=== PATIENT | female | born 1950 | race Caucasian/White ===

== ENCOUNTER 2021-10-01 01:31 | Emergency (ER) | payer OTHER ==
[2021-10-01 02:05] LABS: HEMOGLOBIN 14.1 gm/dl (12.3-15.3); RED BLOOD COUNT 4.68 M/UL (4.00-5.10); WHITE BLOOD COUNT 10.9 K/UL (4.5-11.0)
[2021-10-01 02:29] LABS: BUN/CREATININE RATIO 20 (0-10)
[2021-10-01] MEDS ORDERED: PROVENTIL HFA6.7 GM INH (05:56)
[2021-10-01] MEDS ORDERED: BENZONATATE100 MG PO (05:56)
[2021-10-01] MEDS ORDERED: OMNICEF 300 MG300 MG PO (05:56)
== END 2021-10-01 06:31 | disposition home or self-care (01) ==
LOC: ER1 01:31
DX: J18.9 Pneumonia, unspecified organism (principal); Z20.822 Contact with and (suspected) exposure to COVID-19; I10 Essential (primary) hypertension; Z90.49 Acquired absence of other specified parts of digestive tract; Z88.8 Allergy status to other drugs, medicaments and biological substances
CPT/HCPCS: 0240U; 71045; 73030; 80053; 82550; 82553; 83874; 84484; 85025; 85379; 85610; 85730; 93005; 96374; 96375; 99285; J0696; J1885; Q9967

== ENCOUNTER → 2022-05-28 | Outpatient (CLI) | payer OTHER ==
[~2022-05-28] MED LIST: BENZONATATE100 MG PO; OMNICEF 300 MG300 MG PO; PROVENTIL HFA6.7 GM INH
== END ==
LOC: HEART 5 10:29
DX: G45.9 Transient cerebral ischemic attack, unspecified (principal)